=== PATIENT | male | born 1995 | race Caucasian/White ===

== ENCOUNTER 2017-10-25 09:08 | Emergency (ER) | payer SELFPAY ==
[~2017-10-25] VITALS: Ht 180.3 cm; Wt 105.0 kg
[2017-10-25 10:03] LABS: BASOPHILS % 0.6 % (0.0-2.0); HEMATOCRIT. 42.2 % (42.0-52.0); HEMOGLOBIN. 14.4 g/dL (14.0-18.0); LYMPHOCYTES % 8.3 % (20.0-50.0); MEAN CORPUSCULAR HEMOGLOBIN 29.2 pg (28.0-32.0); MEAN CORPUSCULAR VOLUME 85.6 fL (80.0-94.0); MONOCYTES % 6.5 % (2.0-8.0); NEUTROPHILS % 84.6 % (40.0-76.0); PLATELET 250 x1000/uL (130-400); RED BLOOD CELL COUNT 4.92 mill/uL (4.7-6.1); RED CELL DISTRIBUTION WIDTH 13.9 % (11.6-14.6)
[2017-10-25 10:10] VITALS: BP 160/90
[2017-10-25 10:10] LABS: CHLORIDE 100 mEq/L (98-107)
[2017-10-25 10:30] LABS: ETHANOL BLOOD < 10 mg/dL
[2017-10-25] MEDS ORDERED: SODIUM CHLORIDE 0.9% 1,000 ML IV ONE (11:10)
== END 2017-10-25 11:25 | disposition home or self-care (01) ==
LOC: ER 09:08
DX: F19.10 Other psychoactive substance abuse, uncomplicated (principal)
CPT/HCPCS: 36415; 80053; 85025; 99284; G0482; J7030

== ENCOUNTER 2018-12-20 21:24 | Emergency (ER) | payer SELFPAY ==
[~2018-12-20] VITALS: Ht 177.8 cm; Wt 100.0 kg
[2018-12-20] MEDS ORDERED: LORAZEPAM 2MG/ML CPJ IV STA (22:10)
[2018-12-20] MEDS ORDERED: SODIUM CHLORIDE 0.9% 1,000 ML IV ONE (22:10)
[2018-12-20 23:25] LABS: CHLORIDE 99 mEq/L (98-107)
[2018-12-20 23:29] LABS: ETHANOL BLOOD < 10 mg/dL
[2018-12-20 23:31] LABS: EOSINOPHILS % 0.4 % (0.0-5.0); HEMATOCRIT. 45.2 % (42.0-52.0); HEMOGLOBIN. 14.9 g/dL (14.0-18.0); LYMPHOCYTES % 11.1 % (20.0-50.0); MEAN CORPUSCULAR VOLUME 87.6 fL (80.0-94.0); MEAN PLATELET VOLUME 9.9 fl (7.4-10.4); NEUTROPHILS % 82.5 % (40.0-76.0); PLATELET 253 x1000/uL (130-400); RED BLOOD CELL COUNT 5.16 mill/uL (4.7-6.1); RED CELL DISTRIBUTION WIDTH 14.7 % (11.6-14.6)
[2018-12-20 23:33] LABS: *AMPHETAMINES SCREEN URINE PRESUMTIVE POSITIVE (NEGATIVE); *BARBITURATES SCREEN URINE NEGATIVE (NEGATIVE)
[2018-12-20 23:35] LABS: *BENZODIAZEPINES SCREEN URINE PRESUMTIVE POSITIVE (NEGATIVE); *COCAINE SCREEN URINE NEGATIVE (NEGATIVE); CANNABINOID URINE SCREEN PRESUMTIVE POSITIVE (NEGATIVE); METHADONE URINE SCREEN NEGATIVE (NEGATIVE); OPIATES URINE SCREEN NEGATIVE (NEGATIVE); PHENCYCLIDINE URINE SCREEN NEGATIVE (NEGATIVE)
[2018-12-20] MEDS ORDERED: LORAZEPAM 2MG/ML CPJ IV SCH (23:45)
[2018-12-21 10:25] VITALS: BP 144/88
== END 2018-12-21 12:31 | disposition home or self-care (01) ==
LOC: ER 21:24
DX: F19.10 Other psychoactive substance abuse, uncomplicated (principal); R45.1 Restlessness and agitation
CPT/HCPCS: 36415; 80053; 80305; 80320; 85025; 96374; 96376; 99283; J2060; J7030; G0480

== ENCOUNTER 2022-10-16 02:55 | Emergency (ER) | payer MEDICAID ==
[~2022-10-16] VITALS: Ht 188 cm; Wt 87.0 kg
[2022-10-16] MEDS ORDERED: LORAZEPAM 2MG/ML CPJ IV STA (03:02)
[2022-10-16 03:03] VITALS: BP 158/107; PULSE 118; RESP 20; TEMP 98.6; O2SAT 97
[2022-10-16] MEDS ORDERED: SODIUM CHLORIDE 0.9% 1,000 ML IV ONE (03:15)
[2022-10-16 03:52] LABS: BASOPHILS % 0.5 % (0.0-2.0); EOSINOPHILS % 0.2 % (0.0-5.0); HEMATOCRIT. 43.7 % (42.0-52.0); HEMOGLOBIN. 14.6 g/dL (14.0-18.0); LYMPHOCYTES % 8.7 % (20.0-50.0); MEAN CORPUSCULAR HGB CONC 33.4 g/dL (31.0-37.0); MEAN PLATELET VOLUME 8.7 fl (7.4-10.4); MONOCYTES % 5.5 % (2.0-8.0); NEUTROPHILS % 85.1 % (40.0-76.0); PLATELET 278 x1000/uL (130-400); RED BLOOD CELL COUNT 5.03 mill/uL (4.7-6.1); RED CELL DISTRIBUTION WIDTH 15.2 % (11.6-14.6); WHITE BLOOD COUNT 12.8 x1000/uL (4.5-11.0)
[2022-10-16 04:06] LABS: CHLORIDE 104 mEq/L (98-107); INDEX HEMOLYSI 1 (1-3); INDEX ICTERIC 1 (1-4); INDEX LIPEMIC 1 (1-3); POTASSIUM 3.1 mEq/L (3.5-5.1); SODIUM 139 mEq/L (136-145)
[2022-10-16 04:16] LABS: ALANINE AMINOTRANSFERASE 53 IU/L (13-61); ASPARTATE AMINOTRANSFERASE 29 IU/L (15-37); BILIRUBIN TOTAL 0.3 mg/dL (0.1-1.0); CALCIUM 9.4 mg/dL (8.5-10.1); CARBON DIOXIDE 29 mEq/L (21-32); ETHANOL BLOOD < 10 mg/dL (-10); GLUCOSE 115 mg/dL (70-105); PROTEIN TOTAL 7.9 g/dL (6.0-8.3); TROPONIN I HIGH SENSITIVITY 15 ng/L (<78); UREA NITROGEN BLOOD 13 mg/dL (7-21)
[2022-10-16 06:12] LABS: TROPONIN I HIGH SENSITIVITY 22 ng/L (<78)
[2022-10-16] MEDS ORDERED: LORAZEPAM 2MG/ML CPJ IV NR (06:15)
== END 2022-10-16 09:01 | disposition home or self-care (01) ==
LOC: ER 02:55
DX: S93.401A Sprain of unspecified ligament of right ankle, initial encounter (principal); R00.0 Tachycardia, unspecified; F15.10 Other stimulant abuse, uncomplicated; X58.XXXA Exposure to other specified factors, initial encounter; Y93.89 Activity, other specified; Y92.89 Other specified places as the place of occurrence of the external cause; Y99.8 Other external cause status
CPT/HCPCS: 80053; 80320; 85025; 84484; 36415; 73600; 73620; 96361; 96374; 99291; J2060; J7030; Z7610 ×3; G0480